=== PATIENT | female | born 2000 | race Caucasian/White ===

== ENCOUNTER 2020-10-29 09:51 | Emergency (ER) | payer OTHER ==
[2020-10-29] MEDS ORDERED: DIPHENHYDRAMINE 50 MG/ML VIAL ONE (11:06)
[2020-10-29] MEDS ORDERED: FAMOTIDINE 20 MG/2 ML VIAL IV ONE (11:06)
[2020-10-29] MEDS ORDERED: METHYLPREDNISOLONE 125 MG INJ ONE (11:06)
--- NOTE | 2020-10-29 11:48 | ER ---
Nurse's Notes [facility] Name: Cassidy Briseno Age: 19 yrs Sex: Female : 2000 Arrival Date: 10/29/2020 Time: 09:54 Bed 18 Private MD: Diagnosis: Urticaria, unspecified Presentation: 10/29 10:10 Chief complaint: Patient states: Hives all over x 30 minutes, unknown source. jl7 Coronavirus screen: Vaccine status: Patient reports being unvaccinated. At this time, the client does not indicate any symptoms associated with coronavirus-19. Ebola Screen: No symptoms or risks identified at this time. Onset: The symptoms/episode began/occurred acutely, suddenly. Anaphylaxis evaluation, no signs or symptoms of anaphylaxis were noted. Initial Sepsis Screen: Does the patient meet any 2 criteria? No. Patient's initial sepsis screen is negative. Does the patient have a suspected source of infection? No. Patient's initial sepsis screen is negative. Risk Assessment: Do you want to hurt yourself or someone else? Patient reports no desire to harm self or others. Onset of symptoms was October 29, 2020 at 09:45. Care prior to arrival: None. 10:10 Method Of Arrival: Ambulatory [facility] 10:10 Acuity: AIRAM 3 jl7 Triage Assessment: 10:11 General: Appears in no apparent distress. uncomfortable, Behavior is cooperative, jl7 anxious. Pain: Denies pain. Derm: Rash noted that is urticaria. SPECIAL NEEDS LIBRARIAN: 10:11 LMP N/A - control method jl Historical: - Allergies: 10:11 No Known Allergies; jl7 - Home Meds: 10:11 None [Active]; jl7 - PMHx: 10:11 None; jl7 - PSHx: 10:11 None; jl7 - Immunization history:: Adult Immunizations up to date, Client reports having NOT received the Covid vaccine. - Social history:: Smoking status: Patient denies any tobacco usage or history of. - Family history:: not pertinent. - Hospitalizations: : No recent hospitalization is reported. Vital Signs: 10:10 BP 129 / 77; Pulse 123; Resp 19; Temp 98.7; Pulse Ox 97% on R/A; Weight 117.93 kg; jl7 Height 5 ft. 9 in. (175.26 cm); 10:10 Body Mass Index 38.39 (117.93 kg, 175.26 cm) jl7 ED Course: 09:54 Patient arrived in ED. mr 10:04 Andrez Donald MD is Attending Physician. rn 10:11 Triage completed. jl7 10:11 Arm band placed on right wrist. jl7 10:16 Bertha Powell is Primary Nurse. kh1 Administered Medications: 11:04 Drug: SOLU-Medrol (methylPrednisoLONE) 125 mg Route: IVP; Site: right forearm; kh1 11:04 Drug: Benadryl (diphenhydrAMINE) 50 mg Route: IVP; Site: right forearm; kh1 11:04 Drug: Pepcid (famotidine) 20 mg Route: IVP; Site: right forearm; 1 Outcome: 11:48 Discharge ordered by . rn 13:01 Patient left the ED. ss Signatures: Maki Aguero mr Andrez Donald MD MD rn Smirch, Shelby, RN RN Adrian Reeves RN RN [facility] Bertha Powell [facility]
--- NOTE | 2020-10-29 11:48 | EDPHYS ---
Physician Documentation [facility] Name: Cassidy Briseno Age: 19 yrs Sex: Female : 2000 Arrival Date: 10/29/2020 Time: 09:54 Bed 18 Private MD: ED Physician Andrez Donald HPI: 10/29 10:44 This 19 yrs old Female presents to ER via Ambulatory with complaints of rn Allergic Reaction. 10:44 The patient presents with itching, rash. Onset: The symptoms/episode began/occurred rn last night. Associated signs and symptoms: Pertinent positives: hives, Pertinent negatives: abdominal pain, chest pain, fever. Possible causes: The patient has no known obvious cause for the symptoms. At home the patient or guardian has treated the symptoms with Benadryl. Severity of symptoms: At their worst the symptoms were mild in the emergency department the symptoms are unchanged. The patient has experienced similar episodes in the past. The patient has not recently seen a physician. Patient reports allergic reaction, began last night, has happened multiple times in the past, no known trigger. Reports currently just hives and itching. No shortness of breath or vomiting or abdominal pain. Has not followed up with an special weapons unit officer.. MANAGER STRATEGIC: 10:11 LMP N/A - control method jl Historical: - Allergies: 10:11 No Known Allergies; jl7 - Home Meds: 10:11 None [Active]; jl7 - PMHx: 10:11 None; jl7 - PSHx: 10:11 None; jl7 - Immunization history:: Adult Immunizations up to date, Client reports having NOT received the Covid vaccine. - Social history:: Smoking status: Patient denies any tobacco usage or history of. - Family history:: not pertinent. - Hospitalizations: : No recent hospitalization is reported. ROS: 10:44 Constitutional: Negative for fever, chills, and weight loss, Eyes: Negative for injury, rn pain, redness, and discharge, ENT: Negative for injury, pain, and discharge, Neck: Negative for injury, pain, and swelling, Cardiovascular: Negative for chest pain, palpitations, and edema, Respiratory: Negative for shortness of breath, cough, wheezing, and pleuritic chest pain, Abdomen/GI: Negative for abdominal pain, nausea, vomiting, diarrhea, and constipation, Back: Negative for injury and pain, : Negative for injury, bleeding, discharge, and swelling, MS/Extremity: Negative for injury and deformity, Skin: Positive for rash and itching Neuro: Negative for headache, weakness, numbness, tingling, and seizure. 10:44 All other systems are negative. Exam: 10:44 Constitutional: This is a well developed, well nourished patient who is awake, alert, rn and in no acute distress. Head/Face: Normocephalic, atraumatic. Eyes: Periorbital areas with no swelling, redness, or edema. ENT: No intraoral swelling or lesions Cardiovascular: Tachycardic, regular Respiratory: Speaking full sentences, unlabored. No increased work of breathing, no retractions or nasal flaring. Abdomen/GI: Soft, nontender Skin: Diffuse urticarial lesions, no bullae MS/ Extremity: Pulses equal, no cyanosis. Neuro: Awake and alert, GCS 15 Vital Signs: 10:10 BP 129 / 77; Pulse 123; Resp 19; Temp 98.7; Pulse Ox 97% on R/A; Weight 117.93 kg; jl7 Height 5 ft. 9 in. (175.26 cm); 10:10 Body Mass Index 38.39 (117.93 kg, 175.26 cm) jl7 MDM: 10:04 Patient medically screened. rn 11:47 Differential diagnosis: urticaria. Data reviewed: vital signs, nurses notes, and as a rn result, I will discharge patient. Counseling: I had a detailed discussion with the patient and/or guardian regarding: the historical points, exam findings, and any diagnostic results supporting the discharge/admit diagnosis, the need for outpatient follow up, to return to the emergency department if symptoms worsen or persist or if there are any questions or concerns that arise at home. Medical screen evaluation completed. [facility] emergency medical condition absent. Response to treatment: the patient's symptoms have mildly improved after treatment, and as a result, I will discharge patient. Special discussion: I discussed with the patient/guardian in detail that at this point there is no indication for admission to the hospital. It is understood, however, that if the symptoms persist or worsen the patient needs to return immediately for re-evaluation. 10/29 10:15 Order name: IV Start; Complete Time: 11:05 rn Administered Medications: 11:04 Drug: SOLU-Medrol (methylPrednisoLONE) 125 mg Route: IVP; Site: right forearm; kh1 11:04 Drug: Benadryl (diphenhydrAMINE) 50 mg Route: IVP; Site: right forearm; kh1 11:04 Drug: Pepcid (famotidine) 20 mg Route: IVP; Site: right forearm; kh1 Disposition Summary: 10/29/20 11:48 Discharge Ordered Location: Home rn Problem: an ongoing problem rn Symptoms: have improved rn Condition: Stable rn Diagnosis - Urticaria, unspecified rn Followup: rn - With: Private Physician - When: As needed - Reason: Recheck today's complaints, Re-evaluation by your physician Discharge Instructions: - Discharge Summary Sheet kate Morocho rn Forms: - Medication Reconciliation Form rn - Thank You Letter rn - Antibiotic learning coach - Prescription Opioid Use rn Prescriptions: - Prednisone 20 mg Oral Tablet - take 3 tablets by ORAL route once daily for 5 days; 15 tablet; Refills: 0, rn Product Selection Permitted Signatures: Andrez Donald MD MD rn Leal, Jahala, RN RN Bertha Malone [facility]
[2020-10-29 13:07] VITALS: BP 129/77; TEMP 98.7; O2SAT 97
== END 2020-10-29 13:01 | disposition home or self-care (01) ==
LOC: ER 09:51
DX: L50.9 Urticaria, unspecified (principal)
CPT/HCPCS: 96375; 96374; 99282; J1200; J2930

== ENCOUNTER 2020-11-12 18:18 | Emergency (ER) | payer OTHER ==
[2020-11-12] MEDS ORDERED: NA CHLORIDE 0.9% 2,000 ML ONE (19:11)
[2020-11-12] MEDS ORDERED: DIPHENHYDRAMINE 50 MG/ML VIAL ONE (19:11)
[2020-11-12] MEDS ORDERED: METHYLPREDNISOLONE 125 MG INJ ONE (19:11)
[2020-11-12 21:01] LABS: Absolute Lymphocytes (CBC) 1.7 K/uL (0.7-4.9); Basophils % 0.3 % (0-1.3); Lymphocytes % 8.4 % (15.3-44.8); RBC Red Blood Cell Count 4.88 M/uL (3.86-4.86)
[2020-11-12 21:09] LABS: BUN Blood Urea Nitrogen 9 mg/dL (7-18); Bicarbonate 22 mmol/L (21-32); Glucose Level 103 mg/dL (74-106); Sodium Level 145 mmol/L (136-145)
[2020-11-12 22:03] LABS: Blood Morphology Comment NOT SEEN (NOT SEEN); Platelet Estimate ADEQ
[2020-11-12 22:55] LABS: Absolute Lymphocytes (CBC) 1.1 K/uL (0.7-4.9); Basophils % 0.1 % (0-1.3); Hematocrit 44.4 % (36.0-45.0); Lymphocytes % 5.6 % (15.3-44.8); MPV 9.1 fL (7.6-11.3); RBC Red Blood Cell Count 5.05 M/uL (3.86-4.86)
--- NOTE | 2020-11-12 23:13 | ER ---
Nurse's Notes [facility] Name: Cassidy Briseno Age: 19 yrs Sex: Female : 2000 Arrival Date: 11/12/2020 Time: 18:19 Bed 6 Private MD: Diagnosis: Acute allergic reaction. Lenkocytosis Presentation: 11/12 18:34 Chief complaint: Patient states: Pt stated, " I have hives all over, I threw up, kg dizziness, and itching everywhere, Difficulty breathing, chest pain starting at 15:30." Pt denies doing anything different or eating anything different. Coronavirus screen: Vaccine status: Patient reports being unvaccinated. At this time, the client does not indicate any symptoms associated with coronavirus-19. Ebola Screen: Patient negative for fever greater than or equal to 101.5 degrees Fahrenheit, and additional compatible Ebola Virus Disease symptoms Patient denies exposure to infectious person. Patient denies travel to an Ebola-affected area in the 21 days before illness onset. Onset: The symptoms/episode began/occurred suddenly. Onset of symptoms was November 12, 2020 at 15:30. 18:34 Method Of Arrival: Wheelchair kg 18:34 Acuity: AIRAM 3 kg Historical: - Allergies: 18:37 No Known Allergies; kg - Immunization history:: Adult Immunizations up to date. - Social history:: Smoking status: Patient denies any tobacco usage or history of. Screenin:02 Abuse screen: Denies threats or abuse. Denies injuries from another. Nutritional ld1 screening: No deficits noted. Tuberculosis screening: No symptoms or risk factors identified. Fall Risk None identified. Assessment: 19:02 General: Appears in no apparent distress. uncomfortable, Behavior is cooperative, ld1 appropriate for age, anxious. Pain: Denies pain. Neuro: Level of Consciousness is awake, alert, obeys commands, Oriented to person, place, time, situation. Cardiovascular: Capillary refill < 3 seconds Patient's skin is warm and dry. Cardiovascular: Rhythm is regular. Respiratory: Airway is patent Respiratory effort is even, unlabored, Respiratory pattern is regular, symmetrical. Respiratory: Breath sounds are clear bilaterally. GI: Abdomen is round non-distended. : No signs and/or symptoms were reported regarding the genitourinary system. EENT: No signs and/or symptoms were reported regarding the EENT system. Derm: Rash noted that is papular, red, on face, chest, abdomen, right arm, left arm, right leg and left leg Reports itching. Musculoskeletal: No signs and/or symptoms reported regarding the musculoskeletal system. 19:31 Reassessment: Patient and/or family updated on plan of care and expected duration. Pain ea level reassessed. Patient is alert, oriented x 3, equal unlabored respirations, skin warm/dry/pink. 20:30 Reassessment: Patient appears in no apparent distress at this time. Patient and/or jb4 family updated on plan of care and expected duration. Pain level reassessed. Patient is alert, oriented x 3, equal unlabored respirations, skin warm/dry/pink. 21:30 Reassessment: Patient appears in no apparent distress at this time. Patient and/or jb4 family updated on plan of care and expected duration. Pain level reassessed. Patient is alert, oriented x 3, equal unlabored respirations, skin warm/dry/pink. 23:00 Reassessment: Patient appears in no apparent distress at this time. Patient and/or jb4 family updated on plan of care and expected duration. Pain level reassessed. Patient is alert, oriented x 3, equal unlabored respirations, skin warm/dry/pink. 23:46 Reassessment: Patient and/or family updated on plan of care and expected duration. Pain ea level reassessed. Patient is alert, oriented x 3, equal unlabored respirations, skin warm/dry/pink. Discharge instruction given to patient verbalized the understanding of instruction. Pt left ED ambulatory tolerating well. Vital Signs: 18:34 BP 88 / 66; Pulse 121; Resp 20; Temp 97.7(TE); Pulse Ox 100% on R/A; Weight 117.93 kg kg (R); Height 5 ft. 9 in. (175.26 cm) (R); Pain 5/10; 19:31 Pulse 74; Resp 18; Pulse Ox 100% ; ea 19:34 BP 99 / 51; ea 21:00 BP 99 / 60; Pulse 77; Resp 18; Pulse Ox 98% on R/A; jb4 22:00 BP 99 / 56; Pulse 77; Resp 16; Pulse Ox 98% on R/A; jb4 23:00 BP 106 / 71; Pulse 83; Resp 16; Pulse Ox 98% on R/A; jb4 18:34 Body Mass Index 38.39 (117.93 kg, 175.26 cm) kg ED Course: 18:19 Patient arrived in ED. ds1 18:37 Triage completed. kg 18:40 Chencho Cason MD is Attending Physician. kdr 19:02 Patient has correct armband on for positive identification. Placed in gown. Bed in low ld1 position. Call light in reach. Side rails up X2. Pulse ox on. NIBP on. Door closed. Noise minimized. Warm blanket given. 19:02 No provider procedures requiring assistance completed. Inserted saline lock: 22 gauge ld1 in right wrist, using aseptic technique. 19:06 Attending Physician role handed off by Chencho Cason MD pkbernadette 19:06 Cong Kramer MD is Attending Physician. pkl 19:31 Anjelica Keller RN is Primary Nurse. ea 23:47 IV discontinued, intact, bleeding controlled, No redness/swelling at site. Pressure ea dressing applied. Administered Medications: 19:01 Drug: NS 0.9% 2000 ml Route: IV; Rate: 1 bolus; Site: right wrist; ld1 20:30 Follow up: Response: No adverse reaction; IV Status: Completed infusion; IV Intake: ea 2000ml 19:02 Drug: Benadryl (diphenhydrAMINE) 50 mg Route: IVP; Site: right wrist; ld1 23:48 Follow up: Response: No adverse reaction ea 19:02 Drug: SOLU-Medrol (methylPrednisoLONE) 125 mg Route: IVP; Site: right wrist; ld1 23:48 Follow up: Response: No adverse reaction ea Intake: 20:30 IV: 2000ml; Total: 2000ml. ea Outcome: 23:13 Discharge ordered by . pkl 23:47 Discharged to home ambulatory, with family. ea 23:47 Condition: good 23:47 Discharge instructions given to patient. 23:47 Instructed on discharge instructions, follow up and referral plans. Demonstrated understanding of instructions, follow-up care. 23:48 Patient left the ED. ea Signatures: Cong Kramer MD MD pkChencho Mars MD MD kdr Sanford, Demi ds1 Baldomero Smith RN RN jbAnjelica Clement RN RN ea Dibbern Jaleesa, RN RN ld1 Stacie Tracey RN RN kg Corrections: (The following items were deleted from the chart) 23:02 22:00 BP 99 / 56; Pulse 7bpm; Resp 16bpm; Pulse Ox 98% RA; jb4 jb4
--- NOTE | 2020-11-12 23:14 | EDPHYS ---
Physician Documentation [facility] Name: Cassidy Briseno Age: 19 yrs Sex: Female : 2000 Arrival Date: 11/12/2020 Time: 18:19 Bed 6 Private MD: ED Physician Cong Kramer HPI: 11/12 18:46 This 19 yrs old Female presents to ER via Wheelchair with complaints of kdr Allergic Reaction. 18:46 The patient presents with chest pain, difficulty swallowing, itching, rash, redness of kdr skin. Onset: The symptoms/episode began/occurred suddenly, 3 hour(s) ago. Associated signs and symptoms: Pertinent positives: chest pain, hives, rash. Possible causes: The patient has no known obvious cause for the symptoms. At home the patient or guardian has treated the symptoms with Benadryl. Severity of symptoms: At their worst the symptoms were moderate in the emergency department the symptoms are unchanged. The patient has experienced similar episodes in the past, multiple times, Last 6 months the patient states that she has had several occasions where she has broken out in similar rashes. She has not been able to identify the allergen. The patient has not recently seen a physician. Historical: - Allergies: 18:37 No Known Allergies; kg - Immunization history:: Adult Immunizations up to date. - Social history:: Smoking status: Patient denies any tobacco usage or history of. ROS: 18:46 Constitutional: Negative for fever, chills, and weight loss, Eyes: Negative for injury, kdr pain, redness, and discharge, ENT: Negative for injury, pain, and discharge, Neck: Negative for injury, pain, and swelling, Respiratory: Negative for shortness of breath, cough, wheezing, and pleuritic chest pain, Abdomen/GI: Negative for abdominal pain, nausea, vomiting, diarrhea, and constipation, Back: Negative for injury and pain, : Negative for injury, bleeding, discharge, and swelling, MS/Extremity: Negative for injury and deformity, Neuro: Negative for headache, weakness, numbness, tingling, and seizure activity. Psych: Negative for depression, anxiety, suicide ideation, homicidal ideation, and hallucinations, Allergy/Immunology: Negative for hives, rash, and allergies, Endocrine: Negative for neck swelling, polydipsia, polyuria, polyphagia, and marked weight changes, Hematologic/Lymphatic: Negative for swollen nodes, abnormal bleeding, and unusual bruising. 18:46 Skin: Positive for erythema, rash, diffusely. Exam: 18:46 Constitutional: This is a well developed, well nourished patient who is awake, alert, kdr and in no acute distress. Head/Face: Normocephalic, atraumatic. Eyes: Pupils equal round and reactive to light, extra-ocular motions intact. Lids and lashes normal. Conjunctiva and sclera are non-icteric and not injected. Cornea within normal limits. Periorbital areas with no swelling, redness, or edema. Neck: Trachea midline, no thyromegaly or masses palpated, and no cervical lymphadenopathy. Supple, full range of motion without nuchal rigidity, or vertebral point tenderness. No Meningismus. Chest/axilla: Normal chest wall appearance and motion. Nontender with no deformity. No lesions are appreciated. Cardiovascular: Regular rate and rhythm with a normal S1 and S2. No gallops, murmurs, or rubs. Normal PMI, no JVD. No pulse deficits. Respiratory: Lungs have equal breath sounds bilaterally, clear to auscultation and percussion. No rales, rhonchi or wheezes noted. No increased work of breathing, no retractions or nasal flaring. Abdomen/GI: Soft, non-tender, with normal bowel sounds. No distension or tympany. No guarding or rebound. No evidence of tenderness throughout. Back: No spinal tenderness. No costovertebral tenderness. Full range of motion. MS/ Extremity: Pulses equal, no cyanosis. Neurovascular intact. Full, normal range of motion. Neuro: Awake and alert, GCS 15, oriented to person, place, time, and situation. Cranial nerves II-XII grossly intact. Motor strength 5/5 in all extremities. Sensory grossly intact. Cerebellar exam normal. Normal gait. Psych: Awake, alert, with orientation to person, place and time. Behavior, mood, and affect are within normal limits. 18:46 Skin: rash a moderate rash is noted, rash can be described as erythematous, macular, nonspecific, and is diffusely located. Vital Signs: 18:34 BP 88 / 66; Pulse 121; Resp 20; Temp 97.7(TE); Pulse Ox 100% on R/A; Weight 117.93 kg kg (R); Height 5 ft. 9 in. (175.26 cm) (R); Pain 5/10; 19:31 Pulse 74; Resp 18; Pulse Ox 100% ; ea 19:34 BP 99 / 51; ea 21:00 BP 99 / 60; Pulse 77; Resp 18; Pulse Ox 98% on R/A; jb4 22:00 BP 99 / 56; Pulse 77; Resp 16; Pulse Ox 98% on R/A; jb4 23:00 BP 106 / 71; Pulse 83; Resp 16; Pulse Ox 98% on R/A; jb4 18:34 Body Mass Index 38.39 (117.93 kg, 175.26 cm) kg MDM: 19:06 Patient medically screened. pkl 23:10 Data reviewed: vital signs, nurses notes, lab test result(s). ED course: Patient pkl feeling better. Asymptomatic. No respiratory distress noted. Advised to return if necessary. Patient understood instruction. 11/12 18:46 Order name: CBC with Diff; Complete Time: 22:15 kdr 11/12 18:46 Order name: Chem 7; Complete Time: 21:36 kdr 11/12 21:42 Order name: CBC with Diff; Complete Time: 23:08 wg 11/12 22:03 Order name: Manual Differential; Complete Time: 22:15 EDMS Administered Medications: 19:01 Drug: NS 0.9% 2000 ml Route: IV; Rate: 1 bolus; Site: right wrist; ld1 20:30 Follow up: Response: No adverse reaction; IV Status: Completed infusion; IV Intake: ea 2000ml 19:02 Drug: Benadryl (diphenhydrAMINE) 50 mg Route: IVP; Site: right wrist; ld1 23:48 Follow up: Response: No adverse reaction ea 19:02 Drug: SOLU-Medrol (methylPrednisoLONE) 125 mg Route: IVP; Site: right wrist; ld1 23:48 Follow up: Response: No adverse reaction ea Disposition Summary: 11/12/20 23:13 Discharge Ordered Location: Home pkl Problem: new pkl Symptoms: have improved pkl Condition: Stable pkl Diagnosis - Acute allergic reaction. Lenkocytosis pkl Followup: pkl - With: Private Physician - When: 1 - 2 days - Reason: Re-evaluation by your physician Forms: - Medication Reconciliation Form pkl - Thank You Letter pkl - Antibiotic Education pkl - Prescription Opioid Use pkl Signatures: Dispatcher [employer] Cong Vo MD MD pkl Chencho Cason MD MD kdr Dibbern, Lauren, RN RN ld1 Stacie Tracey RN RN kg Anjelica Keller RN ea
[2020-11-13 00:29] VITALS: TEMP 97.7
[2020-11-13 00:31] VITALS: O2SAT 98
[2020-11-13 00:33] VITALS: BP 106/71
== END 2020-11-12 23:48 | disposition home or self-care (01) ==
LOC: ER 18:18
DX: D72.829 Elevated white blood cell count, unspecified (principal)
CPT/HCPCS: 96361; 85025 ×2; 80048; 36415; 96375; 96374; 99284; J1200; J7030; J2930

== ENCOUNTER 2020-12-25 09:00 | Emergency (ER) | payer OTHER ==
[2020-12-25] MEDS ORDERED: NA CHLORIDE 0.9% 1,000 ML ONE (09:23)
[2020-12-25] MEDS ORDERED: METHYLPREDNISOLONE 125 MG INJ ONE (09:23)
[2020-12-25] MEDS ORDERED: DIPHENHYDRAMINE 50 MG/ML VIAL ONE (09:23)
[2020-12-25] MEDS ORDERED: FAMOTIDINE 20 MG/2 ML VIAL IV ONE (09:23)
[2020-12-25] MEDS ORDERED: ONDANSETRON 4 MG/2 ML VIAL ONE (09:29)
--- NOTE | 2020-12-25 10:41 | ER ---
[facility] Name: Cassidy Briseno Age: 20 yrs Sex: Female : 2000 Arrival Date: 12/25/2020 Time: 09:19 Bed 5 Private MD: Diagnosis: Urticaria, unspecified Presentation: 12/25 09:20 Chief complaint: Patient states: Hives all over, reports chest tightness, started 45 kd3 minutes ago. 09:20 Coronavirus screen: At this time, the client does not indicate any symptoms associated kd3 with coronavirus-19. Ebola Screen: No symptoms or risks identified at this time. Onset: The symptoms/episode began/occurred acutely, 45 minute(s) ago. Anaphylaxis evaluation, chest pain. Initial Sepsis Screen: Does the patient meet any 2 criteria? No. Patient's initial sepsis screen is negative. Does the patient have a suspected source of infection? No. Patient's initial sepsis screen is negative. Risk Assessment: Do you want to hurt yourself or someone else? Patient reports no desire to harm self or others. Onset of symptoms was December 25, 2020 at 08:35. Care prior to arrival: None. 09:20 Acuity: AIRAM 2 kd3 09:43 Method Of Arrival: Wheelchair kd3 Triage Assessment: 09:20 General: Appears in no apparent distress. uncomfortable, Behavior is cooperative, jl7 appropriate for age, anxious. Pain: Complains of pain in right lower quadrant and left lower quadrant Pain currently is 7 out of 10 on a pain scale. Quality of pain is described as crampy. Neuro: Level of Consciousness is awake, alert, obeys commands, Oriented to person, place, time, situation. Cardiovascular: Patient's skin is warm and dry. Respiratory: Airway is patent Respiratory effort is even, unlabored, Respiratory pattern is regular, symmetrical. GI: Pt is actively vomiting. Derm: Skin is dry, Skin is normal, Skin temperature is warm Rash noted that is urticaria, on bodywide. 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 - Social history:: Smoking status: Reported history of juuling and/or vaping. Screenin:52 Abuse screen: Denies threats or abuse. Denies injuries from another. Nutritional jl7 screening: No deficits noted. Tuberculosis screening: No symptoms or risk factors identified. Fall Risk IV access (20 points). Total Morrissey Fall Scale indicates No Risk (0-24 pts). Assessment: 09:20 General: See triage. jl7 09:35 Reassessment: ERD notified of BP, pt placed in Trendelenburg. jl7 10:30 Reassessment: Patient appears in no apparent distress at this time. Patient and/or jl7 family updated on plan of care and expected duration. Pain level reassessed. Patient is alert, oriented x 3, equal unlabored respirations, skin warm/dry/pink. Patient states feeling better. Patient states symptoms have improved. Vital Signs: 09:20 BP 96 / 67; Pulse 101; Resp 15; Temp 97.9; Pulse Ox 100% on R/A; Weight 120.2 kg; kd3 Height 5 ft. 9 in. (175.26 cm); Pain 7/10; 09:35 BP 82 / 62; Pulse 90; Resp 15 S; Pulse Ox 96% on R/A; jl7 09:56 BP 98 / 61; Pulse 80; Resp 15; Pulse Ox 96% ; jl7 10:15 BP 104 / 58; Pulse 67; Resp 17; Pulse Ox 97% ; jl7 10:47 BP 98 / 64; Pulse 65; Resp 16 S; Pulse Ox 98% on R/A; jl7 09:20 Body Mass Index 39.13 (120.20 kg, 175.26 cm) kd3 ED Course: 09:19 Patient arrived in ED. mr 09:20 Neris Bermudez FNP-C [facility] kb 09:20 Brandon Bajwa MD is Attending Physician. kb 09:20 Arm band placed on right wrist. jl7 09:20 Inserted saline lock: 22 gauge in right wrist, using aseptic technique. jl7 09:46 Triage completed. kd3 09:48 Adrian Reeves RN is Primary Nurse. jl7 09:52 Patient has correct armband on for positive identification. Placed in gown. Bed in low jl7 position. Call light in reach. Side rails up X2. awake overnight monitor on. Pulse ox on. NIBP on. 11:05 No provider procedures requiring assistance completed. IV discontinued, intact, jl7 bleeding controlled, No redness/swelling at site. Pressure dressing applied. Administered Medications: 09:26 Drug: NS 0.9% 1000 ml Route: IV; Rate: 1000 ml; Site: right wrist; kd3 10:30 Follow up: IV Status: Completed infusion; IV Intake: 1000ml jl7 09:26 Drug: Benadryl (diphenhydrAMINE) 25 mg Route: IVP; Site: right wrist; kd3 09:45 Follow up: Response: No adverse reaction; Marked relief of symptoms jl7 09:30 Drug: SOLU-Medrol (methylPrednisoLONE) 125 mg Route: IVP; Site: right wrist; kd3 10:00 Follow up: Response: No adverse reaction; Marked relief of symptoms jl7 09:32 Drug: Pepcid (famotidine) 20 mg Route: IVP; Site: right wrist; kd3 10:00 Follow up: Response: No adverse reaction; Marked relief of symptoms jl7 09:35 Drug: Zofran (Ondansetron) 4 mg Route: IVP; Site: right wrist; kd3 09:45 Follow up: Response: No adverse reaction; Nausea is decreased jl7 10:50 Drug: predniSONE 40 mg Route: PO; jl7 10:59 Follow up: Response: Medication administered at discharge. jl7 Intake: 10:30 IV: 1000ml; Total: 1000ml. jl7 Outcome: 10:41 Discharge ordered by . charis 11:05 Discharged to home ambulatory. jl7 11:05 Condition: stable 11:05 Discharge instructions given to patient, family, Instructed on discharge instructions, follow up and referral plans. medication usage, Demonstrated understanding of instructions, follow-up care, medications, Prescriptions given X 2. 11:05 Patient left the ED. jl7 Signatures: Neris Bermudez, FLORENCIA CONWAY-Maki Franco Jahala, RN RN jl7 Kelley Schwab kd3 Corrections: (The following items were deleted from the chart) 09:43 09:32 Benadryl (diphenhydrAMINE) 25 mg IVP in right wrist kd3 kd3 09:53 09:52 Inserted saline lock: 22 gauge in right wrist, using aseptic technique. jl7 jl7 09:52 General: See triage. jl7 jl7 09:20 General: See triage. jl7 jl7 09:35 Reassessment: RUBEN notified of BP, pt placed in Trendelenburg 7 jl7
--- NOTE | 2020-12-25 10:41 | EDPHYS ---
Physician Documentation [facility] Name: Cassidy Briseno Age: 20 yrs Sex: Female : 2000 Arrival Date: 12/25/2020 Time: 09:19 Bed 5 Private MD: ED Physician Brandon Bajwa HPI: 12/25 09:26 This 20 yrs old Female presents to ER via Unassigned with complaints of Hives.kb 09:26 The patient's rash thought to be caused by an unknown cause. The rash is located on the kb body diffusely. The rash can be described as urticarial. Onset: The symptoms/episode began/occurred 40 minute(s) ago. Associated signs and symptoms: Pertinent positives: itching. Severity of symptoms: At their worst the symptoms were moderate in the emergency department the symptoms are unchanged. The patient has experienced similar episodes in the past. The patient has not recently seen a physician. Pt reports hives started 40 minutes ago. States she doesn't know what caused them. States this has happened 3 times in the last few months. 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 . 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 - Social history:: Smoking status: Reported history of juuling and/or vaping. ROS: 09:25 Constitutional: Negative for fever, chills, and weight loss. kb 09:25 Skin: Positive for rash, diffusely. 09:25 All other systems are negative. Exam: 09:25 Constitutional: This is a well developed, well nourished patient who is awake, alert, kb and in no acute distress. Head/Face: Normocephalic, atraumatic. ENT: Moist Mucous membranes Cardiovascular: Regular rate and rhythm with a normal S1 and S2. No gallops, murmurs, or rubs. No pulse deficits. Respiratory: Respirations even and unlabored. No increased work of breathing, no retractions or nasal flaring. MS/ Extremity: Pulses equal, no cyanosis. Neurovascular intact. Full, normal range of motion. Neuro: Awake and alert, GCS 15, oriented to person, place, time, and situation. Moves all extremities. Normal gait. Psych: Awake, alert, with orientation to person, place and time. Behavior, mood, and affect are within normal limits. 09:25 Skin: rash a moderate rash is noted, rash can be described as urticarial, consistent with urticaria, and is diffusely located. Vital Signs: 09:20 BP 96 / 67; Pulse 101; Resp 15; Temp 97.9; Pulse Ox 100% on R/A; Weight 120.2 kg; kd3 Height 5 ft. 9 in. (175.26 cm); Pain 7/10; 09:35 BP 82 / 62; Pulse 90; Resp 15 S; Pulse Ox 96% on R/A; jl7 09:56 BP 98 / 61; Pulse 80; Resp 15; Pulse Ox 96% ; jl7 10:15 BP 104 / 58; Pulse 67; Resp 17; Pulse Ox 97% ; jl7 10:47 BP 98 / 64; Pulse 65; Resp 16 S; Pulse Ox 98% on R/A; jl7 09:20 Body Mass Index 39.13 (120.20 kg, 175.26 cm) kd3 MDM: 09:21 Patient medically screened. kb 09:25 Data reviewed: vital signs, nurses notes. Data interpreted: Pulse oximetry: on room air kb is 100 %. Interpretation: normal. 10:40 Counseling: I had a detailed discussion with the patient and/or guardian regarding: the kb historical points, exam findings, and any diagnostic results supporting the discharge/admit diagnosis, the need for outpatient follow up, an allergy/radiologic electronic specialist, a ore trimmer, to return to the emergency department if symptoms worsen or persist or if there are any questions or concerns that arise at home. Response to treatment: the patient's symptoms have resolved after treatment. 12/25 09:24 Order name: IV Start; Complete Time: 09:42 kb Administered Medications: 09:26 Drug: NS 0.9% 1000 ml Route: IV; Rate: 1000 ml; Site: right wrist; kd3 10:30 Follow up: IV Status: Completed infusion; IV Intake: 1000ml [facility] 09:26 Drug: Benadryl (diphenhydrAMINE) 25 mg Route: IVP; Site: right wrist; kd3 09:45 Follow up: Response: No adverse reaction; Marked relief of symptoms jl7 09:30 Drug: SOLU-Medrol (methylPrednisoLONE) 125 mg Route: IVP; Site: right wrist; kd3 10:00 Follow up: Response: No adverse reaction; Marked relief of symptoms jl7 09:32 Drug: Pepcid (famotidine) 20 mg Route: IVP; Site: right wrist; kd3 10:00 Follow up: Response: No adverse reaction; Marked relief of symptoms jl7 09:35 Drug: Zofran (Ondansetron) 4 mg Route: IVP; Site: right wrist; kd3 09:45 Follow up: Response: No adverse reaction; Nausea is decreased jl7 10:50 Drug: predniSONE 40 mg Route: PO; jl7 10:59 Follow up: Response: Medication administered at discharge. jl7 Disposition Summary: 12/25/20 10:41 Discharge Ordered Location: Home kb Condition: Stable kb Diagnosis - Urticaria, unspecified kb Followup: kb - With: Emergency Department - When: As needed - Reason: Worsening of condition Followup: kb - With: Private Physician - When: 2 - 3 days - Reason: Recheck today's complaints, Continuance of care, Re-evaluation by your physician Discharge Instructions: - Discharge Summary Sheet kb - Hives, [id number] kb Forms: - Medication Reconciliation Form kb - Thank You Letter kb - Antibiotic Education kb - Prescription Opioid Use kb - Work release form eb Prescriptions: - Pepcid 20 mg Oral Tablet - take 1 tablet by ORAL route every 12 hours for 5 days; 10 tablet; Refills: 0, kb Product Selection Permitted - Prednisone 20 mg Oral Tablet - take 2 tablets by ORAL route once daily for 5 days; 10 tablet; Refills: 0, kb Product Selection Permitted Addendum: 12/29/2020 06:38 Co-signature as Attending Physician, Brandon Bajwa MD PA/WIND ENERGY MECHANIC's history reviewed, m a2 patient interviewed, and examined. I agree with assessment and care plan and confirm the diagnosis (es) above. Signatures: Neris Bermudez, FLORENCIA CONWAY-Adrian Blankenship RN RN jl7 Brandon Bajwa MD MD ma2 Kelley Schwab kd3
[2020-12-25] MEDS ORDERED: predniSONE 20 MG TAB ONE (10:48)
[2020-12-25 12:18] VITALS: TEMP 97.9
[2020-12-25 12:24] VITALS: BP 98/64; O2SAT 98
--- OUTSIDE RECORDS SUMMARY | 2020-12-27 21:24 | XMS REPORT | Continuity of Care Document ---
:2000 Author Organization [facility] t Address [address] [place] [address] Care Team Providers Name Role Phone Unavailable Unavailable Unavailable Problems This patient has no known problems. Allergies, Adverse Reactions, Alerts This patient has no known allergies or adverse reactions. Medications This patient has no known medications. Procedures This patient has no known procedures. Encounters Start End Encounter Admission Attending Care Care Encounter Source Date/Time Date/Time Type Type Clinicians Facility Department ID 2020-07-31 2020-07-31 Emergency E MHSE [id number] MH 05:06:00 05:06:00 [facility] Results This patient has no known results.
== END 2020-12-25 11:05 | disposition home or self-care (01) ==
LOC: ER 09:00
DX: L50.9 Urticaria, unspecified (principal)
CPT/HCPCS: 96361; 96375; 96374; 99284; J1200; J7512; J7030; J2930; J2405

== ENCOUNTER 2021-04-08 01:19 | Emergency (ER) | payer OTHER ==
--- OUTSIDE RECORDS SUMMARY | 2021-04-08 01:22 | XMS REPORT | Continuity of Care Document ---
:2000 Author Organization [facility] t Address [address] [place] [address] [address] [place] [address] Care Team Providers Name Role Phone Amaya VARELA Attending Clinician Unavailable Problems This patient has no known problems. Allergies, Adverse Reactions, Alerts This patient has no known allergies or adverse reactions. Medications This patient has no known medications. Procedures This patient has no known procedures. Encounters Start End Encounter Admission Attending Care Care Encounter Source Date/Time Date/Time Type Type Clinicians Facility Department ID 2020-07-31 2020-07-31 Emergency E CAYLA VARELA [facility] [id number] MH 05:06:00 [facility]02[facility] Results This patient has no known results.
[2021-04-08] MEDS ORDERED: ALBUTEROL 2.5 MG/3 ML NEB SOL ONE (02:11)
[2021-04-08] MEDS ORDERED: ONDANSETRON 4 MG/2 ML VIAL ONE (02:11)
[2021-04-08] MEDS ORDERED: NA CHLORIDE 0.9% 1,000 ML ONE (02:27)
--- NOTE | 2021-04-08 03:42 | ER ---
Nurse's Notes [facility] Name: Cassidy Briseno Age: 20 yrs Sex: Female : 2000 Arrival Date: 04/08/2021 Time: 01:21 Bed 19 Private MD: Diagnosis: Urticaria, unspecified;Allergy, unspecified Presentation: 04/08 01:30 Chief complaint: Patient states: hives started around midnight. patient does not know al4 what she is allergic to. patient had this happen one other time, but cannot find a correlation to what caused it this time. Coronavirus screen: Vaccine status: Patient reports receiving the 2nd dose of the covid vaccine. [employer]. Ebola Screen: No symptoms or risks identified at this time. Onset: The symptoms/episode began/occurred suddenly. Anaphylaxis evaluation, the patient reports or I have noted the following symptoms which indicate a significant risk of anaphylaxis: hives. Anaphylaxis evaluation. Initial Sepsis Screen: Does the patient meet any 2 criteria? No. Patient's initial sepsis screen is negative. Does the patient have a suspected source of infection? No. Patient's initial sepsis screen is negative. Risk Assessment: Do you want to hurt yourself or someone else? Patient reports no desire to harm self or others. Onset of symptoms was April 08, 2021 at 00:00. 01:30 Method Of Arrival: Wheelchair al4 01:30 Acuity: AIRAM 3 al4 Triage Assessment: 01:30 General: Appears uncomfortable, Behavior is cooperative, itching body - hives. patient al4 does not know what caused it. . Neuro: Level of Consciousness is awake, alert, obeys commands, Oriented to person, place, time, situation. Cardiovascular: Capillary refill < 3 seconds Patient's skin is warm and dry. Respiratory: Airway is patent Respiratory effort is unlabored, Respiratory pattern is regular. Derm: patient has healed mosquito bites on legs Reports itching. 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 - Social history:: Smoking status: Patient denies any tobacco usage or history of. Assessment: 01:39 Reassessment: triage assessment done at bedside. al4 Vital Signs: 01:30 BP 93 / 54; Pulse 125; Resp 18; Temp 98.1(O); Pulse Ox 97% ; al4 03:41 BP 125 / 85; Pulse 95; Resp 18; Pulse Ox 98% on R/A; sf1 ED Course: 01:21 Patient arrived in ED. ja2 01:27 Merrill Ansari PA is PHCP. cp 01:27 Sumit Krishnan MD is Attending Physician. cp 01:36 Triage completed. al4 01:38 Arm band placed on. al4 02:21 Dianna Boyer RN is Primary Nurse. sf1 Administered Medications: 01:59 CANCELLED (Physician Discretion): NS 0.9% 500 ml IV at 500 ml/hr continuous cp 02:00 CANCELLED (Physician Discretion): NS 0.9% 1000 ml IV at 1 bolus Per protocol; 1000 mL cp bolus 02:21 Drug: NS 0.9% 500 ml Route: IV; Rate: bolus; Site: left antecubital; sf1 02:21 Drug: Albuterol - atroVENT (ipratropium) (3:1) (2.5 mg - 0.5 mg) 3 ml Route: Nebulizer; sf1 02:22 Drug: Zofran (Ondansetron) 4 mg Route: IVP; Site: left antecubital; sf1 02:22 Drug: NS 0.9% 500 ml Route: IV; Rate: bolus; Site: left antecubital; sf1 02:23 Drug: SOLU-Medrol (methylPrednisoLONE) 125 mg Route: IVP; Site: left antecubital; sf1 02:23 Drug: Benadryl (diphenhydrAMINE) 50 mg Route: IVP; Site: left antecubital; sf1 02:23 Drug: Pepcid (famotidine) 20 mg Route: IVP; Site: left antecubital; sf1 Outcome: 03:40 Discharge ordered by . cp 04:10 Patient left the ED. sf1 Signatures: Merrill Ansari PA PA Chata Frost ja2 Jovanni Lozano al4 Dianna Boyer RN RN sf1 Corrections: (The following items were deleted from the chart) 01:39 01:39 Reassessment: triage done at bedside al4 al4 01:40 01:30 General: Appears uncomfortable, Behavior is cooperative, al4 al4
--- NOTE | 2021-04-08 03:42 | EDPHYS ---
Physician Documentation [facility] Name: Cassidy Briseno Age: 20 yrs Sex: Female : 2000 Arrival Date: 04/08/2021 Time: 01:21 Bed 19 Private MD: ED Physician Sumit Krishnan HPI: 04/08 01:40 This 20 yrs old Female presents to ER via Wheelchair with complaints of Allergic cp Reaction, Hives. 01:40 The patient presents with rash, that is diffuse, shortness of breath. Onset: The cp symptoms/episode began/occurred today, about 0000. Associated signs and symptoms: Pertinent positives: nausea, vomiting, Pertinent negatives: abdominal pain, dysphagia, fever. Possible causes: The patient has no known obvious cause for the symptoms. At home the patient or guardian has treated the symptoms with nothing. Severity of symptoms: in the emergency department the symptoms are unchanged. The patient has experienced similar episodes in the past, several times, Mother reports unknown cause. 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 - Social history:: Smoking status: Patient denies any tobacco usage or history of. ROS: 01:45 Constitutional: Negative for body aches, chills, fever, poor PO intake. cp 01:45 Eyes: Negative for injury, pain, redness, and discharge. cp 01:45 ENT: Negative for drainage from ear(s), ear pain, sore throat, difficulty swallowing, difficulty handling secretions. 01:45 Respiratory: Positive for shortness of breath, at rest. Negative for cough. 01:45 Abdomen/GI: Positive for nausea and vomiting, Negative for abdominal pain, diarrhea, constipation. 01:45 Skin: Positive for rash, diffusely. 01:45 Neuro: Negative for altered mental status, headache, weakness. 01:45 All other systems are negative. Exam: 01:50 Constitutional: The patient appears in no acute distress, alert, awake, non-toxic, well cp developed, well nourished, obese. 01:50 Head/Face: Normocephalic, atraumatic. cp 01:50 Eyes: Periorbital structures: appear normal, Conjunctiva: normal, no exudate, no injection, Lids and lashes: appear normal, bilaterally. 01:50 ENT: External ear(s): are unremarkable, Nose: is normal, Mouth: Lips: moist, Posterior pharynx: Airway: no evidence of obstruction, patent, swelling, is not appreciated, erythema, is not appreciated. 01:50 Chest/axilla: Inspection: normal. 01:50 Cardiovascular: Rate: tachycardic, Rhythm: regular. 01:50 Respiratory: the patient does not display signs of respiratory distress, Respirations: shallow respirations, that is mild, Breath sounds: are clear throughout, no decreased breath sounds, no stridor, no wheezing. 01:50 Abdomen/GI: Exam negative for discomfort, distension, guarding, Inspection: abdomen appears normal. 01:50 Skin: consistent with urticaria, and is diffusely located. 01:50 Neuro: Orientation: to person, place \T\ time. Mentation: is normal, Motor: moves all fours, strength is normal. Vital Signs: 01:30 BP 93 / 54; Pulse 125; Resp 18; Temp 98.1(O); Pulse Ox 97% ; al4 03:41 BP 125 / 85; Pulse 95; Resp 18; Pulse Ox 98% on R/A; sf1 MDM: 01:35 Patient medically screened. cp 01:45 Differential diagnosis: anaphylaxis, angioedema, urticaria. cp 03:40 Data reviewed: vital signs, nurses notes. cp 03:40 Counseling: I had a detailed discussion with the patient and/or guardian regarding: the cp historical points, exam findings, and any diagnostic results supporting the discharge/admit diagnosis, the need for outpatient follow up, a family practitioner, to return to the emergency department if symptoms worsen or persist or if there are any questions or concerns that arise at home. Response to treatment: the patient's symptoms have markedly improved after treatment, VSS. Patient reports symptoms markedly improved and requesting discharge. 04/08 01:35 Order name: IV; Complete Time: 02:22 cp Administered Medications: 01:59 CANCELLED (Physician Discretion): NS 0.9% 500 ml IV at 500 ml/hr continuous cp 02:00 CANCELLED (Physician Discretion): NS 0.9% 1000 ml IV at 1 bolus Per protocol; 1000 mL cp bolus 02:21 Drug: NS 0.9% 500 ml Route: IV; Rate: bolus; Site: left antecubital; sf1 02:21 Drug: Albuterol - atroVENT (ipratropium) (3:1) (2.5 mg - 0.5 mg) 3 ml Route: Nebulizer; sf1 02:22 Drug: Zofran (Ondansetron) 4 mg Route: IVP; Site: left antecubital; sf1 02:22 Drug: NS 0.9% 500 ml Route: IV; Rate: bolus; Site: left antecubital; sf1 02:23 Drug: SOLU-Medrol (methylPrednisoLONE) 125 mg Route: IVP; Site: left antecubital; sf1 02:23 Drug: Benadryl (diphenhydrAMINE) 50 mg Route: IVP; Site: left antecubital; sf1 02:23 Drug: Pepcid (famotidine) 20 mg Route: IVP; Site: left antecubital; sf1 Disposition: 06:39 Co-signature as Attending Physician, Sumit Krishnan MD. mh7 Disposition Summary: 04/08/21 03:40 Discharge Ordered Location: Home cp Problem: new cp Symptoms: have improved cp Condition: Stable cp Diagnosis - Urticaria, unspecified cp - Allergy, unspecified cp Followup: cp - With: Private Physician - When: 1 - 2 days - Reason: Recheck today's complaints Discharge Instructions: - Discharge Summary Sheet cp - Allergies, Adult cp - Anaphylactic Reaction, Adult cp - Hives cp Forms: - Medication Reconciliation Form cp - Thank You Letter cp - Antibiotic Education cp - Prescription Opioid Use cp Prescriptions: - Pepcid 20 mg Oral Tablet - take 1 tablet by ORAL route every 12 hours for 10 days; 20 tablet; Refills: 0, cp Product Selection Permitted - Prednisone 20 mg Oral Tablet - take 3 tablets by ORAL route once daily for 5 days; 15 tablet; Refills: 0, cp Product Selection Permitted Signatures: Merrill Ansari PA PA cp Holmes, Maurice, MD MD mh7 Jovanni Lozano Samantha, RN RN sf1 Corrections: (The following items were deleted from the chart) 01:59 01:35 NS 0.9% 500 ml IV at 500 ml/hr continuous ordered. cp cp 02:00 01:59 NS 0.9% 1000 ml IV at 1 bolus Per protocol; 1000 mL bolus ordered. cp cp
[2021-04-08 05:39] VITALS: TEMP 98.1
[2021-04-08 05:40] VITALS: BP 125/85; O2SAT 98
== END 2021-04-08 04:10 | disposition home or self-care (01) ==
LOC: ER 01:19
DX: L50.9 Urticaria, unspecified (principal); Z91.09 Other allergy status, other than to drugs and biological substances
CPT/HCPCS: 94640; 96375; 96374; 99284; J7030; J2405

== ENCOUNTER 2021-06-09 09:29 | Emergency (ER) | payer OTHER ==
--- OUTSIDE RECORDS SUMMARY | 2021-06-09 09:31 | XMS REPORT | Continuity of Care Document ---
:2000 Author Organization [facility] t Address [address] [place] [address] [address] [place] [address] Care Team Providers Name Role Phone Amaya [...] VARELA [facility]SE [id number] MH 05:06:00 07:02:00 EMILY lo [facility] Results This patient has no known results.
[2021-06-09] MEDS ORDERED: METHYLPREDNISOLONE 125 MG INJ ONE (09:54)
[2021-06-09] MEDS ORDERED: DIPHENHYDRAMINE 50 MG/ML VIAL ONE ×2 (09:54→10:34)
[2021-06-09] MEDS ORDERED: NA CHLORIDE 0.9% 1,000 ML ONE (10:00)
[2021-06-09] MEDS ORDERED: FAMOTIDINE 20 MG/2 ML VIAL IV ONE (10:34)
--- NOTE | 2021-06-09 11:12 | ER ---
Nurse's Notes [facility] Name: Cassidy Briseno Age: 20 yrs Sex: Female : 2000 Arrival Date: 06/09/2021 Time: 09:31 Bed 18 Private MD: Diagnosis: Allergic urticaria Presentation: 06/09 09:40 Chief complaint: Patient states: SOB around 0300 this morning, noticed hives and vg1 swelling to SAMMY eyes and lips. States took zyrtec, but still has swelling to SAMMY eyes and lips, denies SOB at this time but states chest pain. Coronavirus screen: Vaccine status: Patient reports receiving the 2nd dose of the covid vaccine. Client denies travel out of the [place] in the last 14 days. Ebola Screen: Patient denies exposure to infectious person. Patient denies travel to an Ebola-affected area in the 21 days before illness onset. Onset: The symptoms/episode began/occurred this morning. Anaphylaxis evaluation, no signs or symptoms of anaphylaxis were noted. Initial Sepsis Screen: Does the patient meet any 2 criteria? No. Patient's initial sepsis screen is negative. Does the patient have a suspected source of infection? No. Patient's initial sepsis screen is negative. Risk Assessment: Do you want to hurt yourself or someone else? Patient reports no desire to harm self or others. Onset of symptoms was June 09, 2021 at 03:00. 09:40 Method Of Arrival: Ambulatory vg1 09:40 Acuity: AIRAM 3 vg1 Triage Assessment: 09:44 General: Appears in no apparent distress. comfortable, Behavior is calm, cooperative. vg1 Pain: Complains of pain in chest Pain currently is 7 out of 10 on a pain scale. Pain began 0300. Neuro: Level of Consciousness is awake, alert, obeys commands, Oriented to person, place, time, situation. Cardiovascular: Patient's skin is warm and dry. Respiratory: Airway is patent Respiratory effort is even, unlabored, Respiratory pattern is regular. Historical: - Allergies: :44 No Known Allergies; vg1 - Home Meds: :44 Zyrtec Oral [Active]; vg1 - PMHx: :44 Seasonal Allergies; Depressive disorder; ADHD; vg1 - PSHx: :44 None; vg1 - Immunization history:: Client reports receiving the 2nd dose of the Covid vaccine. - Social history:: Smoking status: Reported history of juuling and/or vaping. - Family history:: not pertinent. - Hospitalizations: : No recent hospitalization is reported. Screenin:15 Abuse screen: Denies threats or abuse. Denies injuries from another. Nutritional ww screening: No deficits noted. Tuberculosis screening: No symptoms or risk factors identified. Fall Risk None identified. Assessment: 10:15 General: Appears in no apparent distress. comfortable, Behavior is calm, cooperative. ww Pain: Denies pain. Neuro: Level of Consciousness is awake, alert, obeys commands, Oriented to person, place, time, situation, Moves all extremities. Speech is normal. Cardiovascular: Patient's skin is warm and dry. Rhythm is sinus tachycardia. Respiratory: Airway is patent Respiratory effort is even, unlabored, Respiratory pattern is regular, symmetrical. GI: No signs and/or symptoms were reported involving the gastrointestinal system. Abdomen is non-distended, obese. : No signs and/or symptoms were reported regarding the genitourinary system. Derm: Skin is intact, is healthy with good turgor, Skin is pink, warm \T\ dry. Reports itching, hives that have resolved prior to arrival. 11:30 Reassessment: Patient appears in no apparent distress at this time. No changes from ww previously documented assessment. Patient and/or family updated on plan of care and expected duration. Pain level reassessed. 12:06 Reassessment: Patient appears in no apparent distress at this time. No changes from ww previously documented assessment. Patient and/or family updated on plan of care and expected duration. Pain level reassessed. Patient is alert, oriented x 3, equal unlabored respirations, skin warm/dry/pink. Patient states feeling better. Vital Signs: 09:40 BP 123 / 81; Pulse 100; Resp 20; Temp 98.0; Pulse Ox 100% on R/A; Weight 108.86 kg; vg1 Height 5 ft. 9 in. (175.26 cm); Pain 7/10; 12:06 BP 111 / 66; Pulse 92; Resp 18; Pulse Ox 100% on R/A; ww 09:40 Body Mass Index 35.44 (108.86 kg, 175.26 cm) vg1 ED Course: 09:31 Patient arrived in ED. as 09:33 Andrez Donald MD is Attending Physician. rn 09:44 Triage completed. vg1 09:44 Arm band placed on. vg1 09:47 Cathryn Smith, RN is Primary Nurse. ww 10:15 Patient has correct armband on for positive identification. Bed in low position. Call ww light in reach. Side rails up X 1. monitoring engineer on. Pulse ox on. NIBP on. 10:15 Inserted saline lock: 20 gauge in right antecubital area, using aseptic technique. ww 12:07 No provider procedures requiring assistance completed. IV discontinued, intact, ww bleeding controlled, No redness/swelling at site. Pressure dressing applied. Administered Medications: 09:54 Drug: SOLU-Medrol (methylPrednisoLONE) 125 mg Route: IVP; Site: right antecubital; ww 09:55 Drug: Benadryl (diphenhydrAMINE) 25 mg Route: IVP; Site: right antecubital; ww 09:57 Drug: NS 0.9% 1000 ml Route: IV; Rate: 1000 ml; Site: right antecubital; ww 10:34 Drug: Benadryl (diphenhydrAMINE) 25 mg Route: IVP; Site: right antecubital; ww 10:37 Drug: Pepcid (famotidine) 20 mg Route: IVP; Site: right antecubital; ww Outcome: 11:12 Discharge ordered by . rn 12:07 Discharged to home ambulatory. ww 12:07 Condition: stable 12:07 Discharge instructions given to patient, Instructed on discharge instructions, follow up and referral plans. medication usage, safety practices, Demonstrated understanding of instructions, follow-up care, medications, Prescriptions given X 1. 12:07 Patient left the ED. ww Signatures: Lizett Huizar as Andrez Donald MD MD rn Garcia, Victoria, RN RN vg1 Cathryn Smith, RN RN ww Corrections: (The following items were deleted from the chart) 09:46 09:40 Chief complaint: Patient states: SOB around 0300 this morning, noticed hives and vg1 swelling to SAMMY eyes and lips. States took zyrtec, but still has swelling to SAMMY eyes and lips, denies SOB at this time. vg1
--- NOTE | 2021-06-09 11:12 | EDPHYS ---
Physician Documentation [facility] Name: Cassidy Briseno Age: 20 yrs Sex: Female : 2000 Arrival Date: 06/09/2021 Time: 09:31 Bed 18 Private MD: ED Physician Andrez Donald HPI: 06/09 09:47 This 20 yrs old Female presents to ER via Ambulatory with complaints of Allergic rn Reaction. 09:47 The patient presents with itching, rash. Onset: The symptoms/episode began/occurred rn this morning. Associated signs and symptoms: Pertinent positives: hives, rash, Pertinent negatives: abdominal pain, Altered mental status fever, shortness of breath, Syncope. Possible causes: At home the patient or guardian has treated the symptoms with zyrtec and vitamin D. Severity of symptoms: At their worst the symptoms were moderate in the emergency department the symptoms have improved. The patient has experienced similar episodes in the past. The patient has not recently seen a physician. Pt reports "another allergic reaction", has been here multiple times for this, states this is mild compared to others, and took allergy medication prior to coming in with improvement of symptoms. Reports hives and itching earlier with chest pain, which she states is typical for her allergic reactions. Has required epi before. Already feeling better. . Historical: - Allergies: 09:44 No Known Allergies; vg1 - Home Meds: 09:44 Zyrtec Oral [Active]; vg1 - PMHx: 09:44 Seasonal Allergies; Depressive disorder; ADHD; vg1 - PSHx: 09:44 None; vg1 - Immunization history:: Client reports receiving the 2nd dose of the Covid vaccine. - Social history:: Smoking status: Reported history of juuling and/or vaping. - Family history:: not pertinent. - Hospitalizations: : No recent hospitalization is reported. ROS: 09:47 Constitutional: Negative for fever, chills, and weight loss, Eyes: Negative for injury, rn pain, redness, and discharge, ENT: Negative for injury, pain, and discharge, Neck: Negative for injury, pain, and swelling, Cardiovascular: Negative for palpitations, and edema, Respiratory: Negative for shortness of breath, cough, wheezing, and pleuritic chest pain, Abdomen/GI: Negative for abdominal pain, nausea, vomiting, diarrhea, and constipation, Back: Negative for injury and pain, : Negative for injury, bleeding, discharge, and swelling, MS/Extremity: Negative for injury and deformity, Skin: + rash and hives Neuro: Negative for headache, weakness, numbness, tingling, and seizure. Exam: 09:47 Constitutional: This is a well developed, well nourished patient who is awake, alert, rn and in no acute distress. Head/Face: Normocephalic, atraumatic. Eyes: Periorbital areas with no swelling, redness, or edema. ENT: no stridor, MMM Cardiovascular: Regular rate and rhythm, pulses intact Respiratory: Speaking full sentences and joking/laughing. No increased work of breathing, no retractions or nasal flaring. Abdomen/GI: Soft, non-tender Skin: Warm, dry, faint urticaria, no desquamation MS/ Extremity: Pulses equal, no cyanosis. Neuro: Awake and alert, GCS 15, oriented to person, place, time, and situation. Vital Signs: 09:40 BP 123 / 81; Pulse 100; Resp 20; Temp 98.0; Pulse Ox 100% on R/A; Weight 108.86 kg; vg1 Height 5 ft. 9 in. (175.26 cm); Pain 7/10; 12:06 BP 111 / 66; Pulse 92; Resp 18; Pulse Ox 100% on R/A; ww 09:40 Body Mass Index 35.44 (108.86 kg, 175.26 cm) vg1 MDM: 09:33 Patient medically screened. rn 11:11 Differential diagnosis: urticaria. Data reviewed: vital signs, nurses notes, old rn medical records, and as a result, I will discharge patient. Counseling: I had a detailed discussion with the patient and/or guardian regarding: the historical points, exam findings, and any diagnostic results supporting the discharge/admit diagnosis, the need for outpatient follow up, to return to the emergency department if symptoms worsen or persist or if there are any questions or concerns that arise at home. Response to treatment: the patient's symptoms have markedly improved after treatment, and as a result, I will discharge patient. Special discussion: I discussed with the patient/guardian in detail that at this point there is no indication for admission to the hospital. It is understood, however, that if the symptoms persist or worsen the patient needs to return immediately for re-evaluation. 06/09 09:40 Order name: IV Start; Complete Time: 09:47 rn Administered Medications: 09:54 Drug: SOLU-Medrol (methylPrednisoLONE) 125 mg Route: IVP; Site: right antecubital; ww 09:55 Drug: Benadryl (diphenhydrAMINE) 25 mg Route: IVP; Site: right antecubital; ww 09:57 Drug: NS 0.9% 1000 ml Route: IV; Rate: 1000 ml; Site: right antecubital; ww 10:34 Drug: Benadryl (diphenhydrAMINE) 25 mg Route: IVP; Site: right antecubital; ww 10:37 Drug: Pepcid (famotidine) 20 mg Route: IVP; Site: right antecubital; ww Disposition Summary: 06/09/21 11:12 Discharge Ordered Location: Home rn Problem: an acute exacerbation rn Symptoms: have improved rn Condition: Stable rn Diagnosis - Allergic urticaria rn Followup: rn - With: Private Physician - When: As needed - Reason: Recheck today's complaints, Re-evaluation by your physician Discharge Instructions: - Discharge Summary Sheet rn - Allergies, Adult rn - Hives rn Forms: - Medication Reconciliation Form rn - Thank You Letter rn - 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 Head/Face: Normocephalic, atraumatic. Eyes: Periorbital areas with no swelling, redness, or edema. ENT: no stridor, MMM rn
[2021-06-09 12:50] VITALS: TEMP 98; O2SAT 100
[2021-06-09 12:52] VITALS: BP 111/66
== END 2021-06-09 12:07 | disposition home or self-care (01) ==
LOC: ER 09:29
DX: L50.0 Allergic urticaria (principal); J30.2 Other seasonal allergic rhinitis
CPT/HCPCS: J1200 ×2; J7030; J2930; J3490; 96374; 96375; 99284

== ENCOUNTER 2021-06-27 14:32 | Emergency (ER) | payer OTHER ==
--- OUTSIDE RECORDS SUMMARY | 2021-06-27 14:33 | XMS REPORT | Continuity of Care Document ---
:2000 Author Organization [facility] t Address [address] [place] [address] [address] [place] [address] Care Team Providers Name Role Phone Amaya [...] [id number] MH 05:06:00 07:02:00 EMILY lo [facility] Results This patient has no known results.
[2021-06-27] MEDS ORDERED: DIPHENHYDRAMINE 50 MG/ML VIAL ONE (16:05)
[2021-06-27] MEDS ORDERED: FAMOTIDINE 20 MG TAB ONE (16:05)
[2021-06-27] MEDS ORDERED: METHYLPREDNISOLONE 125 MG INJ ONE (16:05)
--- NOTE | 2021-06-27 17:41 | ER ---
Nurse's Notes [facility] Name: Cassidy Briseno Age: 20 yrs Sex: Female : 2000 Arrival Date: 06/27/2021 Time: 14:32 Bed DIS4 Private MD: Diagnosis: Rash and other nonspecific skin eruption Presentation: 06/27 15:14 Chief complaint: Patient states: I think I am having an allergic reaction to something jb4 I came into contact with outside. I am having hives, chest pain, and I feel like my forehead is swelling. Coronavirus screen: At this time, the client does not indicate any symptoms associated with coronavirus-19. Ebola Screen: No symptoms or risks identified at this time. Onset: The symptoms/episode began/occurred 1.5 hour(s) ago. Anaphylaxis evaluation, no signs or symptoms of anaphylaxis were noted. Initial Sepsis Screen: Does the patient meet any 2 criteria? No. Patient's initial sepsis screen is negative. Does the patient have a suspected source of infection? No. Patient's initial sepsis screen is negative. Risk Assessment: Do you want to hurt yourself or someone else? Patient reports no desire to harm self or others. Onset of symptoms was June 27, 2021. Transition of care: patient was not received from another setting of care. 15:14 Method Of Arrival: Ambulatory jb4 15:14 Acuity: AIRAM 3 jb4 Historical: - Allergies: 15:17 NKDA; jb4 - Home Meds: 15:17 Zyrtec Oral [Active]; jb4 - PMHx: 15:17 adhd; depressive disorder; seasonal allergies; jb4 - PSHx: 15:17 None; jb4 - Immunization history:: Adult Immunizations up to date. - Social history:: Smoking status: Reported history of juuling and/or vaping. - Family history:: not pertinent. Screenin:59 Abuse screen: Denies threats or abuse. Denies injuries from another. Nutritional iw screening: No deficits noted. Tuberculosis screening: No symptoms or risk factors identified. Fall Risk None identified. Assessment: 16:25 General: Appears in no apparent distress. Behavior is calm, cooperative. Neuro: Level iw of Consciousness is awake, alert, obeys commands, Oriented to person, place, time, situation, Moves all extremities. Full function. Cardiovascular: Patient's skin is warm and dry. Respiratory: Airway is patent Respiratory effort is even, unlabored. Vital Signs: 15:14 BP 122 / 81; Pulse 81; Resp 16; Temp 98.1; Pulse Ox 97% on R/A; Weight 104.33 kg (R); jb4 Height 5 ft. 11 in. (180.34 cm); Pain 8/10; 15:14 Body Mass Index 32.08 (104.33 kg, 180.34 cm) jb4 ED Course: 14:32 Patient arrived in ED. am2 15:17 Triage completed. jb4 15:17 Arm band placed on right wrist. jb4 15:34 Brandon Bajwa MD is Attending Physician. ma2 15:53 Lou Clifton RN is Primary Nurse. iw 18:00 No provider procedures requiring assistance completed. Patient did not have IV access iw during this emergency room visit. Administered Medications: 16:11 Drug: MethylPREDNISolone Sodium Succinate 125 mg Route: IM; Site: left deltoid; iw 16:30 Follow up: Response: No adverse reaction iw 16:11 Drug: Benadryl (diphenhydrAMINE) 50 mg Route: IM; Site: right deltoid; iw 16:40 Follow up: Response: No adverse reaction; Marked relief of symptoms iw 16:11 Drug: Pepcid (famotidine) 20 mg Route: PO; iw 16:30 Follow up: Response: No adverse reaction iw Medication: 16:30 VIS not applicable for this client. iw Outcome: 17:41 Discharge ordered by . ma2 18:00 Patient left the ED. iw 18:00 Discharged to home ambulatory. iw 18:00 Condition: good 18:00 Discharge instructions given to patient, Instructed on discharge instructions, follow up and referral plans. medication usage, Demonstrated understanding of instructions, follow-up care, medications, Prescriptions given X 3. Signatures: Lou Clifton RN RN iw Bryson, James, RN RN [facility] Teri [place] [facility] Brandon Bajwa MD MD inNuno
--- NOTE | 2021-06-27 17:41 | EDPHYS ---
Physician Documentation [facility] Name: Cassidy Briseno Age: 20 yrs Sex: Female : 2000 Arrival Date: 06/27/2021 Time: 14:32 Bed DIS4 Private MD: ED Physician Brandon Bajwa HPI: 06/27 15:51 This 20 yrs old Female presents to ER via Ambulatory with complaints of Allergic ma2 Reaction. 15:51 Patient presents with neurolyse hives over her forehead and both arms itching, denies ma2 shortness of breath difficulty swallowing or change in voice, no lip or tongue swelling.. Historical: - Allergies: 15:17 NKDA; jb4 - Home Meds: 15:17 Zyrtec Oral [Active]; jb4 - PMHx: 15:17 adhd; depressive disorder; seasonal allergies; jb4 - PSHx: 15:17 None; jb4 - Immunization history:: Adult Immunizations up to date. - Social history:: Smoking status: Reported history of juuling and/or vaping. - Family history:: not pertinent. ROS: 15:51 Constitutional: Negative for fever, chills, and weight loss. ma2 15:51 All other systems are negative. Exam: 15:51 Constitutional: This is a well developed, well nourished patient who is awake, alert, ma2 and in no acute distress. Head/Face: Normocephalic, atraumatic. Eyes: Pupils equal round and reactive to light, extra-ocular motions intact. Lids and lashes normal. Conjunctiva and sclera are non-icteric and not injected. Cornea within normal limits. Periorbital areas with no swelling, redness, or edema. ENT: Nares patent. No nasal discharge, no septal abnormalities noted. Tympanic membranes are normal and external auditory canals are clear. Oropharynx with no redness, swelling, or masses, exudates, or evidence of obstruction, uvula midline. Mucous membranes moist. Neck: Trachea midline, no thyromegaly or masses palpated, and no cervical lymphadenopathy. Supple, full range of motion without nuchal rigidity, or vertebral point tenderness. No Meningismus. Chest/axilla: Normal chest wall appearance and motion. Nontender with no deformity. No lesions are appreciated. Cardiovascular: Regular rate and rhythm with a normal S1 and S2. No gallops, murmurs, or rubs. Normal PMI, no JVD. No pulse deficits. Respiratory: Lungs have equal breath sounds bilaterally, clear to auscultation and percussion. No rales, rhonchi or wheezes noted. No increased work of breathing, no retractions or nasal flaring. Abdomen/GI: Soft, non-tender, with normal bowel sounds. No distension or tympany. No guarding or rebound. No evidence of tenderness throughout. Back: No spinal tenderness. No costovertebral tenderness. Full range of motion. Skin: Is hives, warm, dry with normal turgor. Normal color with no rashes, no lesions, and no evidence of cellulitis. MS/ Extremity: Pulses equal, no cyanosis. Neurovascular intact. Full, normal range of motion. Neuro: Awake and alert, GCS 15, oriented to person, place, time, and situation. Cranial nerves II-XII grossly intact. Motor strength 5/5 in all extremities. Sensory grossly intact. Cerebellar exam normal. Normal gait. Vital Signs: 15:14 BP 122 / 81; Pulse 81; Resp 16; Temp 98.1; Pulse Ox 97% on R/A; Weight 104.33 kg (R); jb4 Height 5 ft. 11 in. (180.34 cm); Pain 8/10; 15:14 Body Mass Index 32.08 (104.33 kg, 180.34 cm) jb4 MDM: 15:34 Patient medically screened. ma2 15:51 Differential diagnosis: Mastocystosis non IgE mediated drug reaction urticaria. Data ma2 reviewed: vital signs, nurses notes. Counseling: I had a detailed discussion with the patient and/or guardian regarding: the historical points, exam findings, and any diagnostic results supporting the discharge/admit diagnosis, the presence of at least one elevated blood pressure reading (>120/80) during this emergency department visit, the need for outpatient follow up. Response to treatment: the patient's symptoms have markedly improved after treatment. Administered Medications: 16:11 Drug: MethylPREDNISolone Sodium Succinate 125 mg Route: IM; Site: left deltoid; iw 16:30 Follow up: Response: No adverse reaction iw 16:11 Drug: Benadryl (diphenhydrAMINE) 50 mg Route: IM; Site: right deltoid; iw 16:40 Follow up: Response: No adverse reaction; Marked relief of symptoms iw 16:11 Drug: Pepcid (famotidine) 20 mg Route: PO; iw 16:30 Follow up: Response: No adverse reaction iw Disposition Summary: 06/27/21 17:41 Discharge Ordered Location: Home ma2 Condition: Stable ma2 Diagnosis - Rash and other nonspecific skin eruption ma2 Followup: ma2 - With: Private Physician - When: Tomorrow - Reason: Wound Recheck, If symptoms return, Continuance of care Discharge Instructions: - Discharge Summary Sheet ma2 - Hives ma2 - Rash, Adult, [id number] ma2 Forms: - Medication Reconciliation Form ma2 - Thank You Letter ma2 - Antibiotic Education ma2 - Prescription Opioid Use ma2 Prescriptions: - Benadryl 25 mg Oral Capsule - take 1 capsule by ORAL route every 6 hours As needed; 30 tablet; Refills: 0, ma2 Product Selection Permitted - Medrol (David) 4 mg Oral Tablets, Dose Pack - take 1 tablet by ORAL route as directed - follow package instructions; 1 ma2 packet; Refills: 0, Product Selection Permitted - Pepcid 20 mg Oral Tablet - take 1 tablet by ORAL route once daily for 10 days; 10 tablet; Refills: 0, ma2 Product Selection Permitted Signatures: Lou Clifton RN RN Baldomero Smith RN RN jb4 Brandon Bajwa MD MD ma2
[2021-06-27 21:39] VITALS: BP 122/81; TEMP 98.1; O2SAT 97
== END 2021-06-27 18:00 | disposition home or self-care (01) ==
LOC: ER 14:32
DX: R21 Rash and other nonspecific skin eruption (principal); J30.2 Other seasonal allergic rhinitis
CPT/HCPCS: 96372; 99283; J1200; J2930